=== PATIENT | female | born 2000 | race African-American/Black ===

== ENCOUNTER 2022-08-21 18:54 | Emergency (ER) | payer MEDICAID, SELFPAY ==
--- NOTE | 2022-08-21 20:29 | PC.NURSE ---
Patient up to triage desk to notify this RN that she no longer wanted to wait to be seen. Patient had not yet been triaged. She stated I'll come back tomorrow when it's less busy . She was encouraged to stay to be evaluated but she declines. Encouraged to return with any worsening or new symptoms. The patient was alert and oriented and speaking in full sentences. She was ambulatory with steady gait upon leaving the ER.
== END 2022-08-21 20:29 | disposition left against medical advice (07) ==
LOC: ANHED 20:36
DX: Z53.21 Procedure and treatment not carried out due to patient leaving prior to being seen by health care provider (principal)
CPT/HCPCS: 99199

== ENCOUNTER 2022-08-23 16:55 | Emergency (ER) | payer MEDICAID, SELFPAY ==
--- NOTE | ~2022-08-23 | XR_ITS ---
EXAMINATION: XR chest 2V DATE: 08/23/2022 19:34 INDICATION: Chest pain TECHNIQUE: PA and lateral views of the chest are obtained. COMPARISON: None available FINDINGS: The lungs are free of acute opacities. No pleural effusion or pneumothorax. The cardiomedia stinal silhouette is normal. The visualized bones and soft tissues are unremarkable. IMPRESSION: 1. No acute cardiopulmonary abnormality. Reviewed, dictated and finalized at location F.
--- NOTE | ~2022-08-23 | CT_ITS ---
EXAMINATION: CT abdomen pelvis wo con DATE: 08/23/2022 19:26 INDICATION: Abdominal pain TECHNIQUE: Computed tomography (CT) of the abdomen and pelvis was performed without intravenous contr ast. The dose-length product (DLP) was 662.68 mGy-cm. Automated exposure control and iterative recons truction technique were employed. COMPARISON: None FINDINGS: The lung bases are clear. The heart size is normal. The liver, spleen, pancreas, gallbladde r, and adrenal glands are normal. The kidneys are unremarkable. No pathologically enlarged abdominal or pelvic lymph nodes are identified. There is no free intraperitoneal gas or evidence of bowel obstr uction. IMPRESSION: 1. No CT correlate for the patient's symptoms. Reviewed, dictated and finalized at location F.
[2022-08-23 17:22] VITALS: BP 108/71; PULSE 61; RESP 18; TEMP 36.5; O2SAT 100
[2022-08-23 17:41] LABS: Basophils Percent Auto 0.4 % (0.2-1.2); Eosinophils Absolute Auto 0.2 K/mm3 (0-0.3); Eosinophils Percent Auto 2.8 % (0-4.4); Hematocrit 38.3 % (37.0-47.0); Hemoglobin 11.9 g/dL (12.0-15.0); Immature Granulocyte Absolute 0.01 K/mm3 (0.00-0.031); Immature Granulocyte Percent A 0.2 % (0-0.5); Lymphocytes Absolute Auto 1.96 K/mm3 (0.9-3.2); Lymphocytes Percent Auto 34.6 % (18.3-44.2); Mean Corpuscular HGB Conc 31.1 g/dl (32-36); Mean Corpuscular Hemoglobin 28.7 pg (26-34); Mean Corpuscular Volume 92.3 fl (80-100); Mean Platelet Volume 9.2 fl (7.4-10.4); Monocytes Absolute Auto 0.4 K/mm3 (0.1-0.6); Monocytes Percent Auto 6.7 % (2.6-8.5); Neutrophils Absolute Auto 3.1 K/mm3 (1.3-6.7); Neutrophils Percent Auto 55.3 % (45.5-73.1); Platelet Count Result 302 k/mm3 (150-375); Red Blood Count 4.15 M/mm3 (4.2-5.4); Red Cell Distribution Width 14.1 % (11.5-14.5); White Blood Count 5.7 K/mm3 (4.5-10.0)
[2022-08-23 17:48] LABS: Alanine Aminotransferase 16 U/L (6-35); Albumin Level 4.2 g/dL (3.7-5.6); Alkaline Phosphatase 78 U/L (45-116); Anion Gap 6 mmol/L (8-16); Aspartate Amino Transferase 21 U/L (14-36); Bilirubin,Total 0.6 mg/dL (0.2-1.3); Blood Urea Nitrogen 10 mg/dL (8-21); Carbon Dioxide 27 mmol/L (22-30); Chloride 106 mmol/L (98-107); Estimated CRCL calculation 131 ml/min; Estimated Glomerular Filt Rate > 60; Glucose 90 mg/dL (65-110); Lipase 190 U/L (23-300); Sodium 139 mmol/L (134-143)
--- NOTE | 2022-08-23 18:53 | ECG_ITS ---
Measurements Intervals [place] Rate: 57 P: 64 [place]: 160 QRS: 57 QRSD: 90 T: 47 QT: 417 QTc: 408 Interpretive Statements SINUS BRADYCARDIA BORDERLINE ECG NO PREVIOUS ECG AVAILABLE FOR COMPARISON Electronically Signed On 08-23-2022 21:08:03 CDT by Ino Bartlett D.O.
--- NOTE | 2022-08-23 19:00 | ED.ABDPAIN ---
HPI - Abdominal Pain General Chief Complaint: Abdominal Pain <CARLITA Santos Last Filed: 08/23/22 22:31> Stated Complaint: blood in stool <CARLITA Santos Last Filed: 08/23/22 22:31> Time Seen by Provider: 08/23/22 17:50 <Ama Batista PA-C - Last Filed: 08/23/22 22:31> Source: patient <CARLITA Santos Last Filed: 08/23/22 22:31> Mode of arrival: ambulatory <CARLITA Santos Last Filed: 08/23/22 22:31> Limitations: no limitations <CARLITA Santos Last Filed: 08/23/22 22:31> History of Present Illness HPI narrative: Patient is a 21-year-old female who presents the ED with multiple complaints. Patient reports having bands of pain in her upper and lower abdomen. She states the pain has been intermittent for the last several months, but more constant over the last 8 days. She states the position helps with her pain and Tylenol can temporarily relieve it, but the pain returns. Denies any other aggravating factors to the pain. Denies aggravation with eating. Patient also reports having brief episodes of sharp stabbing left-sided chest pain for the last 3 days. She states it feels like someone is poking a needle into her chest. Denies any chest pain currently. She also reports having diarrhea for the last 3 days with 2 episodes of rectal bleeding on Sunday and Sunday. She states the blood was bright red, mixed in with the stool. Denies history of hemorrhoids. Patient also denies any fever, cough or cold symptoms, nausea, vomiting, difficulty breathing. <CARLITA Santos Last Filed: 08/23/22 22:31> Related Data Allergies/Adverse Reactions: Allergies Allergy/AdvReac Type Severity Reaction Status Date / Time No Known Allergies Allergy Verified 08/23/22 18:48 <CARLITA Santos Last Filed: 08/23/22 22:31> Review of Systems Review of Systems: CONSTITUTIONAL: Denies fever, chills, or sweats. ENT: Denies rhinorrhea, congestion, sore throat. CARDIOVASCULAR: See HPI. RESPIRATORY: See HPI. GASTROINTESTINAL: See HPI. GENITOURINARY: Denies dysuria or hematuria. SKIN: Denies rash or itching. MUSCULOSKELETAL: Denies back pain, joint pain, or myalgia. <Ama Batista PA-C - Last Filed: 08/23/22 22:31> All systems reviewed & are unremarkable except as noted in HPI and below <Ama Batista PA-C - Last Filed: 08/23/22 22:31> PMFSH Past Medical History Medical History: Medical History (Updated 08/24/22 @ 00:00 by Guille Piper) No pertinent past medical history <Ama Batista PA-C - Last Filed: 08/23/22 22:31> Surgical History Surgical History: Surgical History (Updated 08/23/22 @ 19:05 by Ama Batista PA-C) No pertinent past surgical history <Ama Batista PA-C - Last Filed: 08/23/22 22:31> Social History Social History: Social History (Updated 08/23/22 @ 19:05 by Ama Batista PA-C) Smoking status: Never smoker <Ama Batista PA-C - Last Filed: 08/23/22 22:31> Exam Narrative: GENERAL: Well appearing, well-nourished, non-toxic, in no acute distress. HEAD: Normocephalic, atraumatic. NECK: Supple. No adenopathy, no masses. RESPIRATORY: Airway patent, respirations nonlabored. Clear to auscultation bilaterally, no rales, rhonchi, wheezing. CARDIOVASCULAR: Regular rate and rhythm without murmurs, rubs, or gallops. Radial pulses 2+ and equal bilaterally. ABDOMINAL: Soft, tenderness throughout right upper quadrant, epigastric region, right lower quadrant, suprapubic region, nondistended, no hepatosplenomegaly. Normoactive BS. RECTAL: No external hemorrhoids noted. Normal tone. Brown stool. Guaiac negative. No significant tenderness with AR. MUSCULOSKELETAL: Moves all extremities. Strength/ROM intact without gross deformities. Mild left-sided anterior chest wall tenderness to palpation. SKIN: Warm, dry,
--- NOTE | 2022-08-23 19:04 | PC.NURSE ---
Pt refused IV at this time and MOHIT Serrato made aware.
--- NOTE | 2022-08-23 19:05 | PC.NURSE ---
Report given to ARSENIO Sesay at this time.
[2022-08-23 19:10] LABS: Appearance Urine Cloudy (Clear); Bacteria Urine 1+ /hpf; Bilirubin Urine Negative (Negative); Blood Urine Negative (Negative); Color Urine Dark Yellow (Yellow); Glucose Urine UA Negative (Negative); Hyaline Casts Urine Present /lpf; Ketones Urine Trace mg/dL (Negative); Leukocyte Esterase Ur 1+ LEU/UL (Negative); Nitrate Urine Negative (Negative); Non Pathogenic Casts 0-2; Protein Urine Trace mg/dL (Negative); RBC Urine 0-2 /hpf (0-2); Specific Grav Ur 1.034 (1.001-1.035); Squamous Epithelial Cell Urine Moderate /hpf (Few)
[2022-08-23 19:14] LABS: Add Urine Microscopic? YES
[2022-08-23] MEDS: ACETAMINOPHEN 500 MG TABLET 1000 MG PO (19:22)
[2022-08-23] MEDS: BELLADONNA ALK/PHENOB ELIX 10 ML, MAG HYDROX/ALUMINUM HYD/SIMETH 30 ML, LIDOCAINE HCL 2... PO (19:22)
[2022-08-23 21:56] VITALS: BP 118/66; PULSE 77; RESP 18; TEMP 36.6; O2SAT 99
== END 2022-08-23 22:21 | disposition home or self-care (01) ==
PROVIDERS: Emergency Medicine; Emergency Provider Physician Assistant
DX: N39.0 Urinary tract infection, site not specified (principal); R07.89 Other chest pain; R10.9 Unspecified abdominal pain
CPT/HCPCS: 36415; 71046; 74176; 80053; 81001; 81025; 83690; 85025; 87086; 93005; 99284; A9270